=== PATIENT | male | born 1965 | race Caucasian/White ===

== ENCOUNTER 2018-05-05 19:49 | Emergency (ER) | payer OTHER ==
[~2018-05-05] VITALS: Ht 180.3 cm; Wt 63.5 kg
[~2018-05-05 19:49] MED LIST: IBUPROFEN 600600 M1 PO; KEFLEX500 MG PO; NORCO 5-325 TA1 EACH PO; denies any meds
[2018-05-05] MEDS ORDERED: ULTRAM 50MG TAB50 MG PO (20:58)
[2018-05-05] MEDS ORDERED: KEFLEX500 M1 PO (20:58)
[2018-05-05 21:28] VITALS: BP 122/76
== END 2018-05-05 21:28 | disposition home or self-care (01) ==
LOC: ER 19:49
DX: S60.452A Superficial foreign body of right middle finger, initial encounter (principal); L08.9 Local infection of the skin and subcutaneous tissue, unspecified; E78.00 Pure hypercholesterolemia, unspecified; F17.210 Nicotine dependence, cigarettes, uncomplicated; X58.XXXA Exposure to other specified factors, initial encounter; Y93.89 Activity, other specified; Y92.89 Other specified places as the place of occurrence of the external cause; Y99.0 Civilian activity done for income or pay